=== PATIENT | female | born 1930 | race Caucasian/White ===

== ENCOUNTER 2016-07-09 13:13 | Inpatient (IN) | payer MEDICARE, OTHER ==
--- NOTE | ~2016-07-09 | DS ---
Discharge Summary [facility] [address] [place]. [address] NAME: CANDACE CLINTON : 32 STATUS : DIS IN PAT#: [id number] AGE: 85 ADM/REG DATE : 07/09/16 MR#: [id number] REPORT SERV DATE: 07/17/16 DICTATED BY: CALVIN PRICE DATE: 07/16/16 REPORT STATUS : Draft TRANSCRIBED BY: MODL DATE: 07/16/16 ADMISSION DATE: 07/09/2016 DISCHARGE DATE: 07/16/2016 DISCHARGE DIAGNOSES: 1. Uncontrolled hypertension. 2. Type 2 diabetes mellitus. 3. Community-acquired pneumonia, now resolved. 4. Chronic obstructive pulmonary disease with O2 dependency. 5. Anxiety disorder. 6. Chronic respiratory failure. 7. Sleep apnea. 8. Coronary artery disease, on previous CT imaging. 9. Mild aortic stenosis. 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 11.Gastroparesis. 12.Chronic constipation. 13.Hypothyroidism. 14.Hyperlipidemia. 15.Chronic anemia due to chronic disease. CONSULTANTS DURING THIS HOSPITALIZATION: None. INVASIVE PROCEDURES DONE DURING THIS HOSPITALIZATION: None. BRIEF HISTORY OF PRESENT ILLNESS: The patient is an 85-year-old female who presented with dyspnea, found to have community-acquired pneumonia, so she was admitted. For detailed history and physical exam, please see note dictated by Dr. Elie Vidal on 07/09/2016. HOSPITAL COURSE: After being admitted to the hospital, this patient was given aggressive nebulizing treatments. She was given IV antibiotics and monitored. She was even given IV fluids and her diuretics were held. This patient continued to improve. Dr. Vidal continued to follow her and manage her respiratory status. We were able to wean her oxygen down to 2 liters of her baseline. She finished her full seven-day course of IV Rocephin and Zithromax, and these have since been discontinued at this time. The other issue that we ran into once we resuscitated this patient was significant elevation in her blood pressure. Multiple medication adjustments were way by Dr. Vidal and with the undersigned physician as well; however, we still continued to have issues with management of her blood pressure. Finally, we decided she would be placed on Norvasc. She has had a prior lower extremity edema, but this time, we have decided that we will use Norvasc in a divided dose of 5 mg twice daily. We increased her Imdur. Hydralazine has been discontinued and we will resume torsemide to further continue to manage her fluid status. She feels well enough. Her blood pressure is in acceptable ranges, even though not great, at times in the 130s systolic to 160s systolic. She feels that she could go home and recover in the home setting. DISCHARGE DISPOSITION: Home. Discharge Summary [address] [address] NAME: CANDACE CLINTON : 32 STATUS : DIS IN PAT#: [id number] AGE: 85 ADM/REG DATE : 07/09/16 MR#: [id number] REPORT SERV DATE: 07/17/16 DICTATED BY: CALVIN PRICE DATE: 07/16/16 REPORT STATUS : Draft TRANSCRIBED BY: ALBARO DATE: 07/16/16 DISCHARGE ACTIVITY: As tolerated. DISCHARGE DIET: Low-sodium, 1800-calorie [employer] diet. DISCHARGE MEDICATIONS: Xanax 1 mg three times daily, Coreg 25 mg twice daily, amlodipine 5 mg twice daily, NovoLog subcutaneously 8 units three times daily, Lantus 8 units subcutaneously twice daily, Imdur 30 mg twice daily, levothyroxine 88 mcg once daily, MiraLAX one packet p.o. once at bedtime, Oflox eye drops as directed by the eye doctor, Ketoralac eye drops as directed by the eye physician, Celluvisc ophthalmic drop, Senokot two tablets twice daily for constipation, MiraLAX one packet p.o. at bedtime, levothyroxine 88 mcg p.o. daily, Spiriva Respimat two puffs inhalation daily, Advair Diskus 500/50 one puff twice daily, Juancarlos eye drops, torsemide 20 mg once daily, Crestor 10 mg once daily, glipizide XL 10 mg twice daily, FiberCon laxatives as needed, Tear Plus eye drops, and DuoNebs one inhalation four times daily. DISCHARGE FOLLOWUP: With Dr. Elo Duran in one week. More than 35 minutes spent planning this patient's discharge, reconciling medications, writing prescriptions, discussing hospital care, and follow up with the patient. DACIA/ALBARO Calvin Price M.D. / [id number] CC: Jose Quintero M.D.
--- NOTE | ~2016-07-09 | HP ---
History And Physical [place] [id number] [facility] [place]. [address] NAME: CANDACE CLINTON : 32 STATUS : ADM IN [facility]#: [id number] AGE: 85 ADM/REG DATE : 07/09/16 MR#: [id number] REPORT SERV DATE: 07/10/16 DICTATED BY: SARTHAK VIDAL DATE: 07/09/16 REPORT STATUS : Draft TRANSCRIBED BY: MODL DATE: 07/09/16 DATE OF ADMISSION: 07/09/2016 CHIEF COMPLAINT: This is an 85-year-old white female, who was triaged in the emergency room today, 07/09/2016, at 1204 hours with a chief complaint of "general sickness." After evaluation in the emergency room, her diagnoses were dyspnea; COPD, O2 dependent; and probable aortic stenosis. Admission was felt warranted. The Hospitalist Service was contacted. The patient is now seen by the undersigned and admitted. The history was obtained from the patient, , and review of medical records on [employer] and [employer]. HISTORY OF PRESENT ILLNESS: The patient reports that yesterday morning she was more short of breath. It waxed and waned through the day. It got worse last night, but she decided not to come to the emergency room, because she thought it might get better. It was worse this morning, so she presented for evaluation. She has felt weaker than normal. However, she has not had any cough, wheezing, fever, chills, or chest pain. She has had some back pain in her mid and low back and perhaps in her chest area as well. She normally is on 2 L of O2 by nasal cannula. Her sats are normally in the 90s. Her indicates that it dropped down to the 70s transiently yesterday. She has not had any rash or focal joint pain. No headache, earache, sore throat, or nasal drainage. She has not had any nausea or vomiting. She did develop some diarrhea two days ago and started a liquid diet with improvement. She did not have any rectal bleeding. She has not had any dysuria or hematuria. She is up to date on flu immunization, but has never had a pneumococcal vaccination. She saw her primary care physician, Dr. Duran this week. She was stable at that time. There were no medication changes. PAST MEDICAL HISTORY: Her medical history includes; 1. Chronic obstructive pulmonary disease. 2. Chronic respiratory failure. 3. Pulmonary nodules. 4. Sleep apnea. 5. Systemic hypertension. 6. Coronary artery disease, per previous CT imaging. 7. Mild aortic stenosis, per previous echocardiography. 8. Mesenteric vascular disease, per previous duplex imaging, December 2015; demonstrating disease in SMA, celiac, and KHOI. 9. Gastroparesis. 10.Chronic constipation. History And Physical [address] [address] NAME: CANDACE CLINTON : 32 STATUS : ADM IN PAT#: [id number] AGE: 85 ADM/REG DATE : 07/09/16 MR#: [id number] REPORT SERV DATE: 07/10/16 DICTATED BY: SARTHAK VIDAL DATE: 07/09/16 REPORT STATUS : Draft TRANSCRIBED BY: ALBARO DATE: 07/09/16 11.Type 2 diabetes. 12.Hypothyroid, on replacement, with recent dosage adjustments. 13.Anxiety, on chronic Xanax. 14.Hyperlipidemia. PAST SURGICAL HISTORY: Cholecystectomy, hysterectomy, unilateral salpingo-oophorectomy, appendectomy, vocal cord nodule removal, partial thyroidectomy. ALLERGIES OR INTOLERANCE: To tetanus vaccines and toxoid, amlodipine, Aldomet, and prednisone, the latter causing hypertension, hyperglycemia, and mental status changes. HOME MEDICATIONS: DuoNebs four times daily, Xanax 1 mg three times daily, Tears Plus as needed, carvedilol 25 mg twice daily, Advair Diskus one puff twice daily, Glucotrol XL 10 mg twice daily, Apresoline 25 mg every eight hours, NovoLog 8 units before meals, Lantus 8 units twice daily, Imdur 30 mg daily, levothyroxine 88 mcg daily, MiraLAX one packet at bedtime, Crestor 10 mg daily, Spiriva Respimat two puffs daily, torsemide 20 mg daily, fiber laxative twice daily. SOCIAL HISTORY: She is . She lives with her . Her grandson also lives with them. She does not eat any tobacco or alcohol products at this time. She does not require any assistive devices for ambulation at her home. She occasionally cooks. FAMILY HISTORY: Father had a stroke and ND. Mother had ALS. Four siblings living. Positive sibling history for dementia and vascular disease. A sister from drug overdose. REVIEW OF SYSTEMS: Complete. Negative except as noted above. PHYSICAL EXAMINATION: VITAL SIGNS: Admission ER vital signs, blood pressure 184/73, temperature 97.8, pulse 67, respirations 16, O2 saturation 97% on 2 L. GENERAL: This is a chronically ill-appearing white female, examined in room 6124. She is alert and conversant. She is on O2. SKIN: Warm and dry. No rash, petechiae, or ecchymoses. NODES: No palpable axillary, cervical, or inguinal. HEENT: Atraumatic with symmetric facies. Lids, sclerae, and conjunctivae negative. No xanthelasma, scleral icterus, or conjunctival petechiae or injection. Pupils are equal, round, and reactive to light. Extraocular movements intact. No nystagmus. Hearing intact. External ears negative. Ear canals ceruminous, cannot see TMs. Nose negative. Anterior nares without obstruction or mucus. Nasal O2 in place. Lips, gums, mucosa, hard palate, and tongue negative. Cannot see posterior pharynx. NECK: No visible JVD or asymmetry. No palpable mass, goiter, or tenderness. Trachea midline, nontender. LUNGS: Diminished breath sounds bilaterally with no audible adventitious sounds. HEART: Regular rate and rhythm with 2/6 aortic systolic murmur without diastolic murmur, click, rub, or S3 gallop. Pulses are 2+ and symmetric radial, carotid, and femoral. No History And Physical [address] [address] NAME: CANDACE CLINTON : 32 STATUS : ADM IN [facility]#: [id number] AGE: 85 ADM/REG DATE : 07/09/16 MR#: [id number] REPORT SERV DATE: 07/10/16 DICTATED BY: SARTHAK VIDAL DATE: 07/09/16 REPORT STATUS : Draft TRANSCRIBED BY: MODL DATE: 07/09/16 palpable dorsalis pedis or posterior tibial. ABDOMEN: Bowel sounds present. Nontender to palpation. No guarding, rebound, or rigidity. Cannot feel liver, spleen, kidneys, or aortic pulsation. UPPER AND LOWER EXTREMITIES x4: OA change of hands. No edema. No calf tenderness. No active synovitis. No clubbing. NEUROLOGIC: Mental status normal. Cranial nerves II through XII normal. Deep tendon reflexes absent except for bilateral symmetric brachioradialis. Negative Lois. Negative Babinski. Sensory intact to touch and temperature. PSYCHIATRIC: Appropriate mood and affect for presentation. DATA: Chest x-ray, reviewed. Shallow inspiration with bibasilar discoid atelectasis. No acute findings. EKG, sinus rhythm with left atrial enlargement, delayed anterior R-wave progression. Procalcitonin pending. Sodium 143, potassium 4.2, chloride 108, CO2 of 26, BUN 12, creatinine 0.95, glucose 128, calcium 8.5. Albumin 3.3, globulin is 3.6, total bilirubin 0.9, alkaline phosphatase 85, ALT 21, AST 16. BNP is pending. Troponin is pending. CBC; white count 10.2, hemoglobin 10.5 (stable), platelets are 178,000. Urinalysis pending. ASSESSMENT: This is an 85-year-old white female with, 1. Dyspnea. Consider acute exacerbation of chronic obstructive pulmonary disease with a history of chronic obstructive pulmonary disease on chronic respiratory failure. Consider coronary artery disease equivalent with known coronary disease per previous CT imaging of chest. Consider right ventricle and left ventricle dysfunction with history of diastolic dysfunction on previous echocardiography. Consider progression of aortic stenosis. Consider pulmonary embolization. Consider hypoglycemia, uncontrolled hypertension, arrhythmias, other. 2. Hypertension. 3. Pulmonary nodules. 4. Sleep apnea. 5. Chronic kidney disease 3. 6. Mesenteric vascular disease. 7. Peripheral arterial disease. 8. Gastroparesis. 9. Chronic constipation. 10.Type 2 diabetes. 11.Hypothyroid. 12.Hyperlipidemia. 13.Anxiety. 14.Chronic anemia. PLAN: Stat CT chest, troponin, BNP, procalcitonin to admission labs and D-dimer. Continue home medications except for glipizide and Advair Diskus, substituting correction scale insulin and Brovana, budesonide. Get echocardiography. Monitor for arrhythmias and hypoglycemia. Further diagnostic and therapeutic considerations pending above interpretation. History And Physical [address] [address] NAME: CANDACE CLINTON : 32 STATUS : ADM IN [facility]#: [id number] AGE: 85 ADM/REG DATE : 07/09/16 MR#: [id number] REPORT SERV DATE: 07/10/16 DICTATED BY: SARTHAK VIDAL DATE: 07/09/16 REPORT STATUS : Draft TRANSCRIBED BY: MODL DATE: 07/09/16 DD/MODL Sarthak Vidal M.D. / [id number] CC: Jose Hill M.D.
[2016-07-09 12:29] LABS: BASOPHILS 0.3 %; BASOPHILS ABSOLUTE 0.03 10/3/uL (0.0-0.16); EOSINOPHILS 2.3 %; EOSINOPHILS ABSOLUTE 0.24 10/3/uL (0.0-0.53); HEMOGLOBIN 10.5 g/dL (12.0-16.0); IMMATURE GRANULOCYTES 0.4 %; IMMATURE GRANULOCYTES ABSOLUTE 0.04 10/3/uL (0.0-0.11); LYMPHOCYTES 17.9 %; LYMPHOCYTES ABSOLUTE 1.83 10/3/uL (0.67-4.30); MEAN CORPUS HGB CONC 32.8 g/dL (32.0-36.0); MEAN CORPUSCULAR HEMOGLOB 28.2 pg (26.0-34.0); MEAN CORPUSCULAR VOLUME 85.8 fL (80-100); MEAN PLATELET VOLUME 10.7 fL (9.2-13.0); MONOCYTES 8.3 %; MONOCYTES ABSOLUTE 0.85 10/3/uL (0.21-1.20); NEUTROPHILS 70.8 %; NEUTROPHILS ABSOLUTE 7.25 10/3/uL (2.02-8.40); PLATELET COUNT 178 10/3/uL (150-400); RBC DISTRIBUTION WIDTH 13.7 % (12.0-16.0); RED CELL COUNT 3.73 10/6/uL (4.0-5.6); WHITE BLOOD CELLS 10.2 10/3/uL (4.5-10.5)
[2016-07-09 12:46] LABS: A/G RATIO 0.9 (0.7-1.9); ALBUMIN 3.3 G/DL (3.5-5.0); ALKALINE PHOSPHATASE 85 U/L (45-117); CALCIUM, SERUM 8.5 MG/DL (8.5-10.4); CHLORIDE, SERUM 108 MMOL/L (96-112); GLOBULIN 3.6 G/DL (2.5-4.1); POTASSIUM, SERUM 4.2 MMOL/L (3.5-5.3); SGOT(AST) 16 U/L (5-40); SGPT(ALT) 21 U/L (5-65); SODIUM, SERUM 143 MMOL/L (135-148); TOTAL BILIRUBIN 0.9 MG/DL (0-1.2); TOTAL PROTEIN 6.9 G/DL (6.0-8.5)
[2016-07-09 12:47] LABS: INFLUENZA A SCREEN NEGATIVE (NEGATIVE); INFLUENZA B SCREEN NEGATIVE (NEGATIVE)
[2016-07-09 12:48] LABS: BUN (BLOOD UREA NITROGEN) 12 MG/DL (6-23); CO2 (CARBON DIOXIDE) 26 MMOL/L (24-34); CREATININE 0.95 MG/DL (0.55-1.02); GFR AFRICAN AMERICAN 64 ML/MIN (>=60); GFR NON AFRICAN AMERICAN 55 ML/MIN (>=60); GLUCOSE, SERUM 128 MG/DL (60-99); MANUAL DIFF NO %
[~2016-07-09 13:13] MED LIST: ACULAR OPH; ALBUTEROL INH; ALD250 PO; APRES10B PO; ASA5GR PO; ATEN100 PO; BENTYL20 PO; BYETTA SC; CALCIUM PO; CAT1 PO; CATAPRES2 TOP; CATAPRES3 TOP; CIP5 PO; COREG25 PO; CRESTOR10 PO; DEMA20 PO; DORYX100 MG PO; DSS PO; GLUCPH PO; GLUCXL10 PO; GLUCXL5 PO; HALF81 PO; ICAPS PO; KLOR-CON M1010 MEQ PO; L40 PO; LANTUS SC; LEVOTHYROXIN88 MCG PO; LONITEN10 PO; LOP100 PO; LOTE40 PO; MAGNESIUM PO; MAGOX4 PO; METAMUCIL CAN7 OZ PO; METPAKSF PO; MIRALAX POWDER1 PKT PO; MIRALAXPKT PO; MURO5OOIN OPH; MVI PO; NEXIUM40 PO; NORV5 PO; NOVOLOG SC; OS500+D PO; P5; PROTONIX PO; PROVHFA INH; REFRESH CELLUVISC OPH; REFRESH OPH; SPIRIVA INH; STOOL SOFTEN100 MG PO; SYN075 PO; SYN112 PO; SYN88 PO; T PO; VENTOLIN HFA INH; VITAMIN B-1500 MG PO; VITAMIN D1000 UNI1 PO; XANAX1 MG PO; [UNRECOGNIZED DRUG - OTHER] OPH
[2016-07-09 13:14] LABS: PLATELET ESTIMATE ADQ (ADEQUATE); RBC MORPHOLOGY NORM (NORMAL)
[2016-07-09] MEDS ORDERED: CRESTOR10 PO (13:23)
[2016-07-09] MEDS ORDERED: GLUCXL10 PO (13:25)
[2016-07-09] MEDS ORDERED: FIBER LAXATIVE PO (13:26)
[2016-07-09] MEDS ORDERED: APRES25 PO (13:27)
[2016-07-09] MEDS ORDERED: TEARS PLUS OPH (13:27)
[2016-07-09] MEDS ORDERED: SPIRIVA RESPIMAT INH (13:28)
[2016-07-09] MEDS ORDERED: IMDUR30 PO (13:28)
[2016-07-09] MEDS ORDERED: ADVAIR INH (13:28)
[2016-07-09] MEDS ORDERED: DUONEB INH (13:29)
[2016-07-09 21:47] LABS: TROPONIN I <0.02 NG/ML (<0.05)
[2016-07-09 22:04] LABS: PROCALCITONIN <0.05 ng/mL (<0.5)
[2016-07-10 06:35] LABS: BASOPHILS 0.4 %; BASOPHILS ABSOLUTE 0.03 10/3/uL (0.0-0.16); EOSINOPHILS 4.2 %; EOSINOPHILS ABSOLUTE 0.29 10/3/uL (0.0-0.53); HEMATOCRIT 29.2 % (36.0-48.0); HEMOGLOBIN 9.5 g/dL (12.0-16.0); IMMATURE GRANULOCYTES 0.1 %; IMMATURE GRANULOCYTES ABSOLUTE 0.01 10/3/uL (0.0-0.11); LYMPHOCYTES 29.5 %; LYMPHOCYTES ABSOLUTE 2.04 10/3/uL (0.67-4.30); MEAN CORPUS HGB CONC 32.5 g/dL (32.0-36.0); MEAN CORPUSCULAR HEMOGLOB 27.5 pg (26.0-34.0); MEAN CORPUSCULAR VOLUME 84.4 fL (80-100); MEAN PLATELET VOLUME 10.9 fL (9.2-13.0); MONOCYTES 10.4 %; MONOCYTES ABSOLUTE 0.72 10/3/uL (0.21-1.20); NEUTROPHILS 55.4 %; NEUTROPHILS ABSOLUTE 3.82 10/3/uL (2.02-8.40); PLATELET COUNT 188 10/3/uL (150-400); RBC DISTRIBUTION WIDTH 13.9 % (12.0-16.0); RED CELL COUNT 3.46 10/6/uL (4.0-5.6); WHITE BLOOD CELLS 6.9 10/3/uL (4.5-10.5)
[2016-07-10 06:37] LABS: MANUAL DIFF NO %
[2016-07-10 06:56] LABS: CALCIUM, SERUM 8.8 MG/DL (8.5-10.4); CHLORIDE, SERUM 105 MMOL/L (96-112); CO2 (CARBON DIOXIDE) 30 MMOL/L (24-34); CREATININE 1.01 MG/DL (0.55-1.02); GFR AFRICAN AMERICAN 60 ML/MIN (>=60); GFR NON AFRICAN AMERICAN 51 ML/MIN (>=60); POTASSIUM, SERUM 3.9 MMOL/L (3.5-5.3); SODIUM, SERUM 143 MMOL/L (135-148); TROPONIN I 0.02 NG/ML (<0.05)
[2016-07-10 06:57] LABS: BUN (BLOOD UREA NITROGEN) 16 MG/DL (6-23); GLUCOSE, SERUM 86 MG/DL (60-99)
[2016-07-10 08:40] LABS: C-REACTIVE PROTEIN 32.8 MG/L (<8.0)
[2016-07-11 06:32] LABS: CALCIUM, SERUM 8.8 MG/DL (8.5-10.4); CHLORIDE, SERUM 104 MMOL/L (96-112); CO2 (CARBON DIOXIDE) 29 MMOL/L (24-34); CREATININE 1.29 MG/DL (0.55-1.02); GFR AFRICAN AMERICAN 44 ML/MIN (>=60); GFR NON AFRICAN AMERICAN 38 ML/MIN (>=60); POTASSIUM, SERUM 4.2 MMOL/L (3.5-5.3); SODIUM, SERUM 141 MMOL/L (135-148)
[2016-07-11 06:33] LABS: BUN (BLOOD UREA NITROGEN) 26 MG/DL (6-23); GLUCOSE, SERUM 108 MG/DL (60-99)
[2016-07-11 06:37] LABS: BASOPHILS 0.4 %; BASOPHILS ABSOLUTE 0.03 10/3/uL (0.0-0.16); EOSINOPHILS 4.2 %; EOSINOPHILS ABSOLUTE 0.29 10/3/uL (0.0-0.53); HEMATOCRIT 29.6 % (36.0-48.0); HEMOGLOBIN 9.7 g/dL (12.0-16.0); IMMATURE GRANULOCYTES 0.3 %; IMMATURE GRANULOCYTES ABSOLUTE 0.02 10/3/uL (0.0-0.11); LYMPHOCYTES 32.8 %; LYMPHOCYTES ABSOLUTE 2.24 10/3/uL (0.67-4.30); MEAN CORPUS HGB CONC 32.8 g/dL (32.0-36.0); MEAN CORPUSCULAR HEMOGLOB 28.2 pg (26.0-34.0); MEAN PLATELET VOLUME 11.4 fL (9.2-13.0); MONOCYTES ABSOLUTE 0.82 10/3/uL (0.21-1.20); NEUTROPHILS 50.3 %; NEUTROPHILS ABSOLUTE 3.43 10/3/uL (2.02-8.40); PLATELET COUNT 190 10/3/uL (150-400); RBC DISTRIBUTION WIDTH 13.8 % (12.0-16.0); RED CELL COUNT 3.44 10/6/uL (4.0-5.6); WHITE BLOOD CELLS 6.8 10/3/uL (4.5-10.5)
[2016-07-11 06:45] LABS: MANUAL DIFF NO %
[2016-07-11 16:38] LABS: FERRITIN 69 NG/ML (8-252)
[2016-07-12 06:00] LABS: BASOPHILS 0.7 %; BASOPHILS ABSOLUTE 0.05 10/3/uL (0.0-0.16); EOSINOPHILS 4.1 %; EOSINOPHILS ABSOLUTE 0.31 10/3/uL (0.0-0.53); HEMOGLOBIN 9.8 g/dL (12.0-16.0); IMMATURE GRANULOCYTES 0.3 %; IMMATURE GRANULOCYTES ABSOLUTE 0.02 10/3/uL (0.0-0.11); LYMPHOCYTES 30.6 %; LYMPHOCYTES ABSOLUTE 2.31 10/3/uL (0.67-4.30); MEAN CORPUS HGB CONC 32.7 g/dL (32.0-36.0); MEAN CORPUSCULAR VOLUME 85.7 fL (80-100); MEAN PLATELET VOLUME 11.2 fL (9.2-13.0); MONOCYTES ABSOLUTE 0.83 10/3/uL (0.21-1.20); NEUTROPHILS 53.3 %; NEUTROPHILS ABSOLUTE 4.03 10/3/uL (2.02-8.40); PLATELET COUNT 212 10/3/uL (150-400); RBC DISTRIBUTION WIDTH 13.8 % (12.0-16.0); WHITE BLOOD CELLS 7.6 10/3/uL (4.5-10.5)
[2016-07-12 06:01] LABS: MANUAL DIFF NO %
[2016-07-12 06:14] LABS: CALCIUM, SERUM 8.8 MG/DL (8.5-10.4); CHLORIDE, SERUM 101 MMOL/L (96-112); CO2 (CARBON DIOXIDE) 31 MMOL/L (24-34); CREATININE 1.25 MG/DL (0.55-1.02); GFR AFRICAN AMERICAN 46 ML/MIN (>=60); GFR NON AFRICAN AMERICAN 40 ML/MIN (>=60); GLUCOSE, SERUM 107 MG/DL (60-99); POTASSIUM, SERUM 3.8 MMOL/L (3.5-5.3); SODIUM, SERUM 141 MMOL/L (135-148)
[2016-07-12 06:16] LABS: BUN (BLOOD UREA NITROGEN) 32 MG/DL (6-23); C-REACTIVE PROTEIN 16.5 MG/L (<8.0)
[2016-07-13 05:00] LABS: BASOPHILS 0.6 %; BASOPHILS ABSOLUTE 0.05 10/3/uL (0.0-0.16); EOSINOPHILS 3.7 %; EOSINOPHILS ABSOLUTE 0.31 10/3/uL (0.0-0.53); HEMATOCRIT 31.2 % (36.0-48.0); HEMOGLOBIN 10.3 g/dL (12.0-16.0); IMMATURE GRANULOCYTES 0.1 %; IMMATURE GRANULOCYTES ABSOLUTE 0.01 10/3/uL (0.0-0.11); MEAN CORPUSCULAR HEMOGLOB 28.2 pg (26.0-34.0); MEAN CORPUSCULAR VOLUME 85.5 fL (80-100); MEAN PLATELET VOLUME 11.4 fL (9.2-13.0); MONOCYTES 13.7 %; MONOCYTES ABSOLUTE 1.15 10/3/uL (0.21-1.20); NEUTROPHILS 56.9 %; NEUTROPHILS ABSOLUTE 4.77 10/3/uL (2.02-8.40); PLATELET COUNT 227 10/3/uL (150-400); RBC DISTRIBUTION WIDTH 13.8 % (12.0-16.0); RED CELL COUNT 3.65 10/6/uL (4.0-5.6); RETICULOCYTE COUNT 1.5 % (0.5-2.5); RETICULOCYTE COUNT ABSOLUTE 52.9 10/3/uL (20.2-119.8); WHITE BLOOD CELLS 8.4 10/3/uL (4.5-10.5)
[2016-07-13 05:01] LABS: MANUAL DIFF NO %
[2016-07-13 05:38] LABS: BUN (BLOOD UREA NITROGEN) 30 MG/DL (6-23); CHLORIDE, SERUM 102 MMOL/L (96-112); CO2 (CARBON DIOXIDE) 31 MMOL/L (24-34); CREATININE 1.09 MG/DL (0.55-1.02); GFR AFRICAN AMERICAN 54 ML/MIN (>=60); GFR NON AFRICAN AMERICAN 47 ML/MIN (>=60); GLUCOSE, SERUM 97 MG/DL (60-99); POTASSIUM, SERUM 4.2 MMOL/L (3.5-5.3); SODIUM, SERUM 140 MMOL/L (135-148)
[2016-07-14 06:23] LABS: BASOPHILS 0.7 %; BASOPHILS ABSOLUTE 0.06 10/3/uL (0.0-0.16); EOSINOPHILS 3.3 %; EOSINOPHILS ABSOLUTE 0.29 10/3/uL (0.0-0.53); HEMATOCRIT 32.4 % (36.0-48.0); HEMOGLOBIN 10.5 g/dL (12.0-16.0); IMMATURE GRANULOCYTES 0.5 %; IMMATURE GRANULOCYTES ABSOLUTE 0.04 10/3/uL (0.0-0.11); LYMPHOCYTES ABSOLUTE 2.21 10/3/uL (0.67-4.30); MEAN CORPUS HGB CONC 32.4 g/dL (32.0-36.0); MEAN CORPUSCULAR HEMOGLOB 28.1 pg (26.0-34.0); MEAN CORPUSCULAR VOLUME 86.6 fL (80-100); MEAN PLATELET VOLUME 11.6 fL (9.2-13.0); MONOCYTES 13.4 %; MONOCYTES ABSOLUTE 1.18 10/3/uL (0.21-1.20); NEUTROPHILS 57.1 %; NEUTROPHILS ABSOLUTE 5.05 10/3/uL (2.02-8.40); PLATELET COUNT 237 10/3/uL (150-400); RBC DISTRIBUTION WIDTH 14.1 % (12.0-16.0); RED CELL COUNT 3.74 10/6/uL (4.0-5.6); WHITE BLOOD CELLS 8.8 10/3/uL (4.5-10.5)
[2016-07-14 06:27] LABS: MANUAL DIFF NO %
[2016-07-14 06:31] LABS: ALBUMIN 3.2 G/DL (3.5-5.0); BUN (BLOOD UREA NITROGEN) 27 MG/DL (6-23); CALCIUM, SERUM 9.2 MG/DL (8.5-10.4); CHLORIDE, SERUM 103 MMOL/L (96-112); CO2 (CARBON DIOXIDE) 31 MMOL/L (24-34); CREATININE 1.09 MG/DL (0.55-1.02); GFR AFRICAN AMERICAN 54 ML/MIN (>=60); GFR NON AFRICAN AMERICAN 47 ML/MIN (>=60); PHOSPHORUS, SERUM 3.4 MG/DL (2.5-4.5); POTASSIUM, SERUM 4.2 MMOL/L (3.5-5.3); SODIUM, SERUM 141 MMOL/L (135-148)
[2016-07-14 06:33] LABS: GLUCOSE, SERUM 136 MG/DL (60-99)
[2016-07-15 06:05] LABS: BASOPHILS 0.5 %; BASOPHILS ABSOLUTE 0.04 10/3/uL (0.0-0.16); EOSINOPHILS 3.5 %; EOSINOPHILS ABSOLUTE 0.26 10/3/uL (0.0-0.53); HEMOGLOBIN 9.3 g/dL (12.0-16.0); IMMATURE GRANULOCYTES ABSOLUTE 0.07 10/3/uL (0.0-0.11); LYMPHOCYTES 28.3 %; LYMPHOCYTES ABSOLUTE 2.08 10/3/uL (0.67-4.30); MEAN CORPUS HGB CONC 32.5 g/dL (32.0-36.0); MEAN CORPUSCULAR HEMOGLOB 27.7 pg (26.0-34.0); MEAN CORPUSCULAR VOLUME 85.1 fL (80-100); MEAN PLATELET VOLUME 11.2 fL (9.2-13.0); MONOCYTES 14.4 %; MONOCYTES ABSOLUTE 1.06 10/3/uL (0.21-1.20); NEUTROPHILS 52.3 %; NEUTROPHILS ABSOLUTE 3.83 10/3/uL (2.02-8.40); PLATELET COUNT 223 10/3/uL (150-400); RBC DISTRIBUTION WIDTH 14.2 % (12.0-16.0); RED CELL COUNT 3.36 10/6/uL (4.0-5.6); WHITE BLOOD CELLS 7.3 10/3/uL (4.5-10.5)
[2016-07-15 06:15] LABS: HEMATOCRIT 28.6 % (36.0-48.0); MANUAL DIFF NO %
[2016-07-15 06:18] LABS: ALBUMIN 2.8 G/DL (3.5-5.0); BUN (BLOOD UREA NITROGEN) 26 MG/DL (6-23); CALCIUM, SERUM 9.1 MG/DL (8.5-10.4); CHLORIDE, SERUM 102 MMOL/L (96-112); CO2 (CARBON DIOXIDE) 29 MMOL/L (24-34); CREATININE 1.07 MG/DL (0.55-1.02); GFR AFRICAN AMERICAN 56 ML/MIN (>=60); GFR NON AFRICAN AMERICAN 48 ML/MIN (>=60); GLUCOSE, SERUM 110 MG/DL (60-99); PHOSPHORUS, SERUM 3.1 MG/DL (2.5-4.5); POTASSIUM, SERUM 4.5 MMOL/L (3.5-5.3); SODIUM, SERUM 139 MMOL/L (135-148)
[2016-07-16 07:00] LABS: ALBUMIN 2.9 G/DL (3.5-5.0); CALCIUM, SERUM 8.8 MG/DL (8.5-10.4); CHLORIDE, SERUM 104 MMOL/L (96-112); CO2 (CARBON DIOXIDE) 31 MMOL/L (24-34); CREATININE 1.15 MG/DL (0.55-1.02); GFR AFRICAN AMERICAN 51 ML/MIN (>=60); GFR NON AFRICAN AMERICAN 44 ML/MIN (>=60); GLUCOSE, SERUM 112 MG/DL (60-99); PHOSPHORUS, SERUM 3.3 MG/DL (2.5-4.5); POTASSIUM, SERUM 4.5 MMOL/L (3.5-5.3); SODIUM, SERUM 140 MMOL/L (135-148)
[2016-07-16 07:01] LABS: BUN (BLOOD UREA NITROGEN) 31 MG/DL (6-23)
[2016-07-16] MEDS ORDERED: NORV5 PO (08:54)
[2016-07-16] MEDS ORDERED: OCUFLOX OPH (08:57)
[2016-07-16] MEDS ORDERED: ACULARLS OPH (08:58)
[2016-07-16] MEDS ORDERED: [UNRECOGNIZED DRUG - OTHER] OPH (08:58)
[2016-07-16] MEDS ORDERED: SENTAB PO (08:59)
[2016-07-16] MEDS ORDERED: MURO5OOIN OPH (09:00)
[2016-09-17] MEDS ORDERED: PROAIR HFA INH (11:01)
[2016-09-17] MEDS ORDERED: APRES50 PO (11:02)
[2016-09-17] MEDS ORDERED: SINGULAIR1 PO (11:02)
[2016-09-17] MEDS ORDERED: ADVAIR230P INH (11:03)
[2016-09-17] MEDS ORDERED: SYMAX-SL0.125 MG SL (11:04)
[2016-09-17] MEDS ORDERED: FLONASE NAS (11:09)
[2016-09-18] MEDS ORDERED: K-TABS10 MEQ PO (16:15)
[2016-09-18] MEDS ORDERED: MICARDIS40 PO (16:16)
[2016-09-18] MEDS ORDERED: CAT1 PO (16:17)
[2016-09-18] MEDS ORDERED: ASAB PO (16:32)
== END 2016-07-16 10:45 | disposition home health service (06) | DRG 190 ==
LOC: ER 13:13 → 6NO 15:05
PROVIDERS: Hospitalist; Internal Medicine
DX: J44.0 Chronic obstructive pulmonary disease with (acute) lower respiratory infection (principal); J18.1 Lobar pneumonia, unspecified organism; J96.21 Acute and chronic respiratory failure with hypoxia; Z99.81 Dependence on supplemental oxygen; E11.22 Type 2 diabetes mellitus with diabetic chronic kidney disease; N18.3 Chronic kidney disease, stage 3 (moderate); K31.84 Gastroparesis; I12.9 Hypertensive chronic kidney disease with stage 1 through stage 4 chronic kidney disease, or unspecified chronic kidney disease; I25.10 Atherosclerotic heart disease of native coronary artery without angina pectoris; F41.9 Anxiety disorder, unspecified; G47.33 Obstructive sleep apnea (adult) (pediatric); K59.00 Constipation, unspecified; E11.43 Type 2 diabetes mellitus with diabetic autonomic (poly)neuropathy; E03.9 Hypothyroidism, unspecified; I73.9 Peripheral vascular disease, unspecified; I73.89 Other specified peripheral vascular diseases; E78.5 Hyperlipidemia, unspecified; D63.8 Anemia in other chronic diseases classified elsewhere; D50.9 Iron deficiency anemia, unspecified; I08.0 Rheumatic disorders of both mitral and aortic valves; Z90.49 Acquired absence of other specified parts of digestive tract; Z90.710 Acquired absence of both cervix and uterus; Z88.7 Allergy status to serum and vaccine; Z88.8 Allergy status to other drugs, medicaments and biological substances; Z82.3 Family history of stroke; Z82.49 Family history of ischemic heart disease and other diseases of the circulatory system; Z79.4 Long term (current) use of insulin
CPT/HCPCS: 71010; 71020; 71275; 80048; 80053; 80069; 82272; 82728; 82962; 83880; 84145; 84484; 85025; 85045; 85379; 86140; 87040; 87070; 87077; 87186; 87205; 87449; 87804; 93005; 93306; 94640; 97161-GP; 99285; A9270-GY; G8978-CH-GP; G8979-CH-GP; G8980-CH-GP; J0456; J2916; Q9967